=== PATIENT | female | born 1960 | race Caucasian/White ===

== ENCOUNTER 2017-09-23 17:07 | Emergency (ER) | payer OTHER ==
[~2017-09-23] VITALS: Ht 5200 cm; Wt 61.0 kg
[~2017-09-23 17:07] MED LIST: HYDR-569 PO; LORA-269 PO
[2017-09-23] MEDS ORDERED: LORazepam 2 mg/ml vial IV ONE (17:40)
[2017-09-23] MEDS ORDERED: ketorolac trometh. 30mg/ml inj. IV ONE ×2 (17:40→19:45)
[2017-09-23 18:00] LABS: BASOPHILS # (AUTO) 0.1 X10'3 (0-0.2); BASOPHILS % (AUTO) 1.1 % (0-1); EOSINOPHILS # (AUTO) 0.1 X10'3 (0-0.9); EOSINOPHILS % (AUTO) 1.7 % (0-6); HEMATOCRIT 40.8 % (35.0-45.0); HEMOGLOBIN 14.1 g/dl (12.0-16.0); LYMPHOCYTES # (AUTO) 1.4 X10'3 (1.1-4.8); LYMPHOCYTES % (AUTO) 24.6 % (21-51); MEAN CORPUSCULAR HGB CONC 34.7 % (33.0-36.5); MEAN CORPUSCULAR VOLUME 92.1 FL (78-98); MEAN PLATELET VOLUME 10.4 FL (7.4-10.4); MONOCYTES # (AUTO) 0.5 X10'3 (0-0.9); MONOCYTES % (AUTO) 8.9 % (2-12); NEUTROPHILS # (AUTO) 3.6 X10'3 (1.8-7.7); NEUTROPHILS % (AUTO) 63.7 % (42-75); PLATELET COUNT 188 X10'3 (140-440); RED BLOOD COUNT 4.43 X10'6 (4.20-5.60); RED CELL DISTRIBUTION WIDTH 13.5 % (11.5-14.5); WHITE BLOOD COUNT 5.7 X10'3 (4.5-11.0)
[2017-09-23 18:09] LABS: PARTIAL THROMBOPLASTIN TIME 25 SECONDS (22-32); PROTHROMBIN TIME 9.9 SECONDS (9.0-12.0)
[2017-09-23 18:18] LABS: LARGE PLATELETS FEW; PLATELET ESTIMATE NORMAL
[2017-09-23 18:25] LABS: ALANINE AMINOTRANSFERASE 29 U/L (12-78); ALBUMIN 3.8 G/DL (3.4-5.0); ALBUMIN/GLOBULIN RATIO 1.1 (1.1-1.5); ALKALINE PHOSPHATASE 89 IU/L (46-116); ANION GAP 8 (8-16); ASPARTATE AMINO TRANSFERASE 19 U/L (10-37); BILIRUBIN,TOTAL 0.4 MG/DL (0.1-1.0); BLOOD UREA NITROGEN 13 MG/DL (7-18); BUN/CREATININE RATIO 15.7 (6.6-38.0); CALCIUM 9.5 MG/DL (8.5-10.1); CHLORIDE 107 MMOL/L (99-107); CREATININE 0.83 MG/DL (0.40-0.90); GLUCOSE 119 MG/DL (70-104); POTASSIUM 3.5 MMOL/L (3.5-5.1); SODIUM 143 MMOL/L (135-145); TOTAL CARBON DIOXIDE 28.3 MMOL/L (24-32); TOTAL PROTEIN 7.3 G/DL (6.4-8.2); eGFR 71 ML/MIN
[2017-09-23] MEDS ORDERED: diphenhydrAMINE 50 mg/ml inj IV ONE (19:45)
[2017-09-23] MEDS ORDERED: normal saline 1000ML IV soln IVB ONE (19:45)
[2017-09-23] MEDS ORDERED: metoclopramide 5 mg/ml inj IV ONE (19:45)
[2017-09-23] MEDS ORDERED: ATEN25TA PO (20:16)
[2017-09-23 21:03] VITALS: BP 114/78
== END 2017-09-23 20:38 | disposition home or self-care (01) ==
LOC: ER 17:07
DX: G43.909 Migraine, unspecified, not intractable, without status migrainosus (principal); R00.2 Palpitations; R07.89 Other chest pain; F17.210 Nicotine dependence, cigarettes, uncomplicated; Z90.710 Acquired absence of both cervix and uterus; Z79.899 Other long term (current) drug therapy
CPT/HCPCS: 36415; 71045; 80053; 83880; 84443; 84484; 85025; 85610; 85730; 93005; 96361; 96374; 96375; 96376; 99285; J1200; J1885; J2060; J2765; J7030

== ENCOUNTER 2018-01-31 06:57 | Day surgery (SDC) | payer OTHER ==
[~2018-01-31] VITALS: Ht 157.5 cm; Wt 61.4 kg
[~2018-01-31 06:57] MED LIST changes: +ATEN25TA PO
[2018-01-31 07:10] VITALS: BP 144/73
[2018-01-31] MEDS ORDERED: ACET-3068 PO (07:38)
[2018-01-31] MEDS ORDERED: MIDAZolam 5mg/5ml vial ONE (07:43)
[2018-01-31] MEDS ORDERED: fentaNYL/PF 50MCG/1 ML 2ML syringe ONE (07:43)
[2018-01-31 09:42] VITALS: BP 114/67
[2018-01-31 09:52] VITALS: BP 122/70
[2018-01-31 10:02] VITALS: BP 111/74
[2018-01-31 10:12] VITALS: BP 136/72
== END 2018-01-31 10:25 | disposition home or self-care (01) ==
LOC: GI LAB 06:57
PROVIDERS: ATTEND Internal Medicine Gastroenterology
DX: K52.89 Other specified noninfective gastroenteritis and colitis (principal); G43.909 Migraine, unspecified, not intractable, without status migrainosus; F17.210 Nicotine dependence, cigarettes, uncomplicated; Z79.891 Long term (current) use of opiate analgesic; Z72.89 Other problems related to lifestyle; Z90.710 Acquired absence of both cervix and uterus; Z98.890 Other specified postprocedural states
CPT/HCPCS: 45380; 99152; J2250; J3010; J7030; A4620; G0500

== ENCOUNTER 2021-04-03 20:22 | Emergency (ER) | payer OTHER ==
[~2021-04-03] VITALS: Ht 157.5 cm; Wt 60.5 kg
[~2021-04-03 20:22] MED LIST changes: +ACET-3068 PO; -ATEN25TA PO; -HYDR-569 PO; -LORA-269 PO; +ORPH100T2 PO
[2021-04-03 21:42] LABS: BASOPHILS % (AUTO) 0.4 % (0-1); EOSINOPHILS % (AUTO) 0.1 % (0-6); HEMATOCRIT 40.9 % (35.0-45.0); LYMPHOCYTES # (AUTO) 0.6 X10'3 (1.1-4.8); LYMPHOCYTES % (AUTO) 15.4 % (21-51); MEAN CORPUSCULAR HEMOGLOBIN 32.3 PG (27.0-31.0); MEAN CORPUSCULAR HGB CONC 34.4 g/dL (33.0-36.5); MEAN CORPUSCULAR VOLUME 93.9 FL (78-98); MEAN PLATELET VOLUME 9.9 FL (7.4-10.4); MONOCYTES # (AUTO) 0.3 X10'3 (0-0.9); MONOCYTES % (AUTO) 8.4 % (2-12); NEUTROPHILS # (AUTO) 2.9 X10'3 (1.8-7.7); NEUTROPHILS % (AUTO) 75.7 % (42-75); PLATELET COUNT 144 X10'3 (140-440); RED BLOOD COUNT 4.35 X10'6 (4.20-5.60); RED CELL DISTRIBUTION WIDTH 12.5 % (11.5-14.5); WHITE BLOOD COUNT 3.9 X10'3 (4.5-11.0)
[2021-04-03 22:32] LABS: ALANINE AMINOTRANSFERASE 25 U/L (12-78); ALBUMIN 3.4 G/DL (3.4-5.0); ALBUMIN/GLOBULIN RATIO 0.9 (1.1-1.5); ALKALINE PHOSPHATASE 85 IU/L (46-116); ANION GAP 7 (8-16); ASPARTATE AMINO TRANSFERASE 28 U/L (10-37); BILIRUBIN,TOTAL 0.2 MG/DL (0.1-1.0); BLOOD UREA NITROGEN 10 MG/DL (7-18); BUN/CREATININE RATIO 13.9 (6.6-38.0); CALCIUM 9.1 MG/DL (8.5-10.1); CHLORIDE 102 MMOL/L (99-107); CREATININE 0.72 MG/DL (0.40-0.90); GLUCOSE 97 MG/DL (70-104); POTASSIUM 4.1 MMOL/L (3.5-5.1); SODIUM 136 MMOL/L (135-145); TOTAL CARBON DIOXIDE 26.6 MMOL/L (24-32); TOTAL PROTEIN 7.4 G/DL (6.4-8.2); eGFR 83 ML/MIN
[2021-04-03] MEDS ORDERED: iohexol 350MG/ML 100ml bottle IV ONE (23:20)
[2021-04-04] MEDS ORDERED: ROBCFL PO (00:27)
[2021-04-04] MEDS ORDERED: ONDA4TAB6 PO (00:27)
[2021-04-04 01:06] VITALS: BP 114/58
== END 2021-04-04 01:07 | disposition home or self-care (01) ==
LOC: ER 20:23
DX: U07.1 COVID-19 (principal); J12.82 Pneumonia due to coronavirus disease 2019
CPT/HCPCS: 36415; 71045; 80053; 85025; 99284; Q9967

== ENCOUNTER 2022-03-21 17:12 | Emergency (ER) | payer OTHER, SELFPAY ==
[~2022-03-21] VITALS: Ht 157.5 cm; Wt 60.7 kg
[~2022-03-21 17:12] MED LIST changes: +ONDA4TAB6 PO
[2022-03-21 18:54] LABS: CLARITY,URINE CLEAR (Clear); COLOR,URINE YELLOW (Yellow); GLUCOSE, URINE NEGATIVE (Neg); KETONES,URINE NEGATIVE (Neg); LEUKOCYTE ESTERASE ,URINE NEGATIVE (Neg); NITRITES, URINE NEGATIVE (Neg); OCCULT BLOOD,URINE NEGATIVE (Neg); PROTEIN,URINE NEGATIVE (Neg); UROBILINOGEN,URINE 0.2 E.U/dL (0.2-1.0)
[2022-03-21 18:55] LABS: UA COLLECTION TYPE CLN CATCH MIDSTREAM
[2022-03-21 19:04] LABS: URINE HCG NEGATIVE (NEG)
[2022-03-21 19:13] LABS: BASOPHILS # (AUTO) 0.1 X10'3 (0-0.2); BASOPHILS % (AUTO) 0.8 % (0-1); EOSINOPHILS % (AUTO) 0.3 % (0-6); HEMATOCRIT 45.4 % (35.0-45.0); HEMOGLOBIN 15.2 g/dl (12.0-16.0); LYMPHOCYTES # (AUTO) 1.4 X10'3 (1.1-4.8); LYMPHOCYTES % (AUTO) 17.1 % (21-51); MEAN CORPUSCULAR HGB CONC 33.5 g/dL (33.0-36.5); MEAN CORPUSCULAR VOLUME 95.6 FL (78-98); MEAN PLATELET VOLUME 10.1 FL (7.4-10.4); MONOCYTES # (AUTO) 0.6 X10'3 (0-0.9); MONOCYTES % (AUTO) 7.7 % (2-12); NEUTROPHILS % (AUTO) 74.1 % (42-75); PLATELET COUNT 211 X10'3 (140-440); RED BLOOD COUNT 4.75 X10'6 (4.20-5.60); RED CELL DISTRIBUTION WIDTH 14.2 % (11.5-14.5); WHITE BLOOD COUNT 8.1 X10'3 (4.5-11.0)
[2022-03-21 19:30] LABS: ALANINE AMINOTRANSFERASE 35 U/L (12-78); ALBUMIN/GLOBULIN RATIO 1.1 (1.1-1.5); ALKALINE PHOSPHATASE 79 IU/L (46-116); ANION GAP 13 (8-16); ASPARTATE AMINO TRANSFERASE 35 U/L (10-37); BILIRUBIN,TOTAL 0.3 MG/DL (0.1-1.0); BLOOD UREA NITROGEN 15 MG/DL (7-18); BUN/CREATININE RATIO 18.3 (6.6-38.0); CALCIUM 9.7 MG/DL (8.5-10.1); CHLORIDE 106 MMOL/L (99-107); CREATININE 0.82 MG/DL (0.40-0.90); GLUCOSE 100 MG/DL (70-104); LIPASE 114 U/L (73-393); POTASSIUM 3.7 MMOL/L (3.5-5.1); SODIUM 144 MMOL/L (135-145); TOTAL CARBON DIOXIDE 24.9 MMOL/L (24-32); TOTAL PROTEIN 7.5 G/DL (6.4-8.2); eGFR 71 ML/MIN
[2022-03-21] MEDS ORDERED: normal saline 1000ml 1,000 ML IV ONE (20:35)
[2022-03-21] MEDS ORDERED: ketorolac trometh. 30mg/ml inj. IV ONE (20:35)
[2022-03-21] MEDS ORDERED: ondansetron/PF 4mg/2ml inj IV ONE (20:35)
[2022-03-21] MEDS ORDERED: ONDA4TAB12 PO (21:45)
--- NOTE | 2022-03-21 22:01 | NUR ---
pt up ofb to BR voided . pt po challehge . gave 120 ml of water - tolerated . now drinking apple juice and saltine crackers
[2022-03-21 22:19] VITALS: BP 160/82
== END 2022-03-21 22:22 | disposition home or self-care (01) ==
LOC: ER 17:13
DX: K52.89 Other specified noninfective gastroenteritis and colitis (principal); Z20.822 Contact with and (suspected) exposure to COVID-19; J02.9 Acute pharyngitis, unspecified; R53.1 Weakness; R42 Dizziness and giddiness; R05.9 Cough, unspecified
CPT/HCPCS: 36415; 80053; 81003; 81025; 83690; 85025; 87502; 87503; 87635; 96361; 96374; 96375; 99284; C9803; J1885; J2405; J7030

== ENCOUNTER 2024-01-10 09:20 | Emergency (ER) | payer OTHER, SELFPAY ==
[~2024-01-10] VITALS: Ht 157.5 cm; Wt 64.5 kg
[~2024-01-10 09:20] MED LIST changes: +ONDA-243 PO; -ORPH100T2 PO; +ORPH100T4 PO
[2024-01-10 10:03] LABS: BASOPHILS # (AUTO) 0.1 X10'3 (0-0.2); BASOPHILS % (AUTO) 0.8 % (0-1); EOSINOPHILS # (AUTO) 0.1 X10'3 (0-0.9); EOSINOPHILS % (AUTO) 0.8 % (0-6); HEMATOCRIT 42.2 % (35.0-45.0); LYMPHOCYTES # (AUTO) 1.9 X10'3 (1.1-4.8); LYMPHOCYTES % (AUTO) 30.3 % (21-51); MEAN CORPUSCULAR HEMOGLOBIN 31.8 PG (27.0-31.0); MEAN CORPUSCULAR HGB CONC 33.1 g/dL (33.0-36.5); MEAN PLATELET VOLUME 10.2 FL (7.4-10.4); MONOCYTES # (AUTO) 0.6 X10'3 (0-0.9); NEUTROPHILS # (AUTO) 3.7 X10'3 (1.8-7.7); NEUTROPHILS % (AUTO) 58.1 % (42-75); PLATELET COUNT 169 X10'3 (140-440); RED BLOOD COUNT 4.39 X10'6 (4.20-5.60); RED CELL DISTRIBUTION WIDTH 13.3 % (11.5-14.5); WHITE BLOOD COUNT 6.4 X10'3 (4.5-11.0)
[2024-01-10 10:26] LABS: ANION GAP 10 (8-16); BLOOD UREA NITROGEN 18 MG/DL (7-18); BUN/CREATININE RATIO 24.3 (10.0-20.0); CALCIUM 9.4 MG/DL (8.5-10.1); CHLORIDE 105 MMOL/L (99-107); CREATININE 0.74 MG/DL (0.40-0.90); GLUCOSE 91 MG/DL (70-104); POTASSIUM 3.8 MMOL/L (3.5-5.1); PRO BRAIN NATRIURETIC PEPTIDE < 30 PG/ML (0-125); SODIUM 139 MMOL/L (135-145); TOTAL CARBON DIOXIDE 24.4 MMOL/L (24-32); eCRCL 62 ML/MIN; eGFR 80 ML/MIN
[2024-01-10 15:35] VITALS: BP 162/66; PULSE 65; RESP 16; TEMP 98; O2SAT 100
== END 2024-01-10 18:33 | disposition left against medical advice (07) ==
LOC: ER 09:21
DX: R42 Dizziness and giddiness (principal); R20.0 Anesthesia of skin; F17.210 Nicotine dependence, cigarettes, uncomplicated; Z79.1 Long term (current) use of non-steroidal anti-inflammatories (NSAID); Z79.899 Other long term (current) drug therapy; Z90.49 Acquired absence of other specified parts of digestive tract; Z72.89 Other problems related to lifestyle
CPT/HCPCS: 36415; 70450; 71045; 80048; 82948; 83880; 84484; 85025; 93005; 99285